=== PATIENT | female | born 1940 | race Caucasian/White ===

== ENCOUNTER 2016-07-26 11:42 | Outpatient (CLI) ==
[2014-08-12 16:37] VITALS: BMI 23.0
[2016-07-26 13:03] LABS: BASOPHILS # (AUTO) 0.1 K/uL (0-0.2); BASOPHILS % (AUTO) 0.7 % (0.0-3.0); EOSINOPHILS # (AUTO) 0.1 K/ul (0.0-0.7); EOSINOPHILS % (AUTO) 1.5 % (0.0-7.0); HEMATOCRIT 39.5 % (37.0-47.0); HEMOGLOBIN 12.9 g/dl (12.0-16.0); IMMATURE GRANULOCYTE % (AUTO) 0.3 % (0.0-5.0); LYMPHOCYTES % (AUTO) 43.9 (10.0-50.0); MEAN CORPUSCULAR HEMOGLOBIN 30.4 pg (27.0-31.0); MEAN CORPUSCULAR HGB CONC 32.7 (31.8-35.4); MEAN CORPUSCULAR VOLUME 92.9 fl (81.0-99.0); MONOCYTES # (AUTO) 0.4 K/uL (0.4-2.0); MONOCYTES % (AUTO) 6.1 (0-10); NEUTROPHILS # (AUTO) 3.3 K/ul (2.0-6.9); NEUTROPHILS % (AUTO) 47.5; PLATELET COUNT 133 10^3/uL (140-440); RED BLOOD COUNT 4.25 10^6/ul (4.20-5.40); WHITE BLOOD COUNT 6.86 K/ul (4.6-10.2)
[2016-07-26 13:04] LABS: BILIRUBIN,URINE Negative (NEGATIVE); KETONES,URINE Negative (NEGATIVE); LEUKOCYTE ESTERASE ,URINE Trace (NEGATIVE); NITRITE,URINE Negative (NEGATIVE); PH,URINE 5.5 (5-9); PROTEIN,URINE 3+ (NEGATIVE); URINE, BLOOD Negative (NEGATIVE)
[2016-07-26 13:17] LABS: ADD URINE MICROSCOPIC YES; ALBUMIN/GLOBULIN RATIO 1.48; ANION GAP 14.9; BILIRUBIN,TOTAL 0.43 mg/dL (0.00-1.20); BUN/CREATININE RATIO 12.65; CALCIUM 9.9 mg/dL (8.2-10.2); CHOL/HDL RATIO 2.8 (4.5-5.5); CREATININE 0.79 mg/dL (0.60-1.30); POTASSIUM 3.9 mmol/L (3.5-5.10); TOTAL PROTEIN 6.7 g/dL (5.8-8.1)
[2016-07-26 13:19] LABS: BACTERIA,URINE 1+ (NOT PRESENT)
== END 2016-07-26 11:43 | disposition home or self-care (01) ==
LOC: LAB 11:42
PROVIDERS: ATTEND General Practice
DX: E11.9 Type 2 diabetes mellitus without complications (principal); I10 Essential (primary) hypertension; Z79.899 Other long term (current) drug therapy
CPT/HCPCS: 36415; 80053; 80061; 81001; 83036; 85025; 87086

== ENCOUNTER 2017-01-04 16:06 | Outpatient (CLI) ==
[2014-08-12 16:37] VITALS: BMI 23.0
[2017-01-04 16:12] LABS: BASOPHILS # (AUTO) 0.1 K/uL (0-0.2); BASOPHILS % (AUTO) 0.6 % (0.0-3.0); EOSINOPHILS # (AUTO) 0.2 K/ul (0.0-0.7); EOSINOPHILS % (AUTO) 2.6 % (0.0-7.0); HEMATOCRIT 39.3 % (37.0-47.0); HEMOGLOBIN 13.2 g/dl (12.0-16.0); IMMATURE GRANULOCYTE % (AUTO) 0.1 % (0.0-5.0); LYMPHOCYTES # (AUTO) 3.5 K/uL (0.60-3.4); LYMPHOCYTES % (AUTO) 43.3 (10.0-50.0); MEAN CORPUSCULAR HGB CONC 33.6 (31.8-35.4); MEAN CORPUSCULAR VOLUME 92.3 fl (81.0-99.0); MONOCYTES # (AUTO) 0.4 K/uL (0.4-2.0); MONOCYTES % (AUTO) 5.1 (0-10); NEUTROPHILS # (AUTO) 3.9 K/ul (2.0-6.9); NEUTROPHILS % (AUTO) 48.3; PLATELET COUNT 141 10^3/uL (140-440); RED BLOOD COUNT 4.26 10^6/ul (4.20-5.40); WHITE BLOOD COUNT 7.99 K/ul (4.6-10.2)
[2017-01-04 16:17] LABS: BILIRUBIN,URINE Negative (NEGATIVE); KETONES,URINE Negative (NEGATIVE); LEUKOCYTE ESTERASE ,URINE Negative (NEGATIVE); NITRITE,URINE Negative (NEGATIVE); PH,URINE 5.5 (5-9); PROTEIN,URINE 2+ (NEGATIVE); URINE, BLOOD Negative (NEGATIVE)
[2017-01-04 16:19] LABS: ADD URINE MICROSCOPIC YES
[2017-01-04 16:27] LABS: ALBUMIN/GLOBULIN RATIO 1.29; ANION GAP 16.7; BILIRUBIN,TOTAL 0.48 mg/dL (0.00-1.20); BUN/CREATININE RATIO 17.14; CALCIUM 9.9 mg/dL (8.2-10.2); CHOL/HDL RATIO 2.6 (4.5-5.5); CREATININE 0.7 mg/dL (0.60-1.30); POTASSIUM 3.7 mmol/L (3.5-5.10); TOTAL PROTEIN 7.1 g/dL (5.8-8.1)
== END 2017-01-04 16:07 | disposition home or self-care (01) ==
LOC: LAB 16:06
PROVIDERS: ATTEND General Practice
DX: E11.9 Type 2 diabetes mellitus without complications (principal); Z79.899 Other long term (current) drug therapy
CPT/HCPCS: 36415; 80053; 80061; 81001; 83036; 85025

== ENCOUNTER 2017-02-22 16:26 | Outpatient (CLI) ==
[2014-08-12 16:37] VITALS: BMI 23.0
[2017-02-22 16:47] LABS: BASOPHILS # (AUTO) 0.1 K/uL (0-0.2); BASOPHILS % (AUTO) 0.9 % (0.0-3.0); EOSINOPHILS # (AUTO) 0.1 K/ul (0.0-0.7); EOSINOPHILS % (AUTO) 1.6 % (0.0-7.0); HEMATOCRIT 39.5 % (37.0-47.0); HEMOGLOBIN 13.2 g/dl (12.0-16.0); IMMATURE GRANULOCYTE % (AUTO) 0.1 % (0.0-5.0); LYMPHOCYTES # (AUTO) 3.8 K/uL (0.60-3.4); LYMPHOCYTES % (AUTO) 46.2 (10.0-50.0); MEAN CORPUSCULAR HEMOGLOBIN 30.9 pg (27.0-31.0); MEAN CORPUSCULAR HGB CONC 33.4 (31.8-35.4); MEAN CORPUSCULAR VOLUME 92.5 fl (81.0-99.0); MONOCYTES # (AUTO) 0.4 K/uL (0.4-2.0); MONOCYTES % (AUTO) 4.7 (0-10); NEUTROPHILS # (AUTO) 3.8 K/ul (2.0-6.9); NEUTROPHILS % (AUTO) 46.5; PLATELET COUNT 153 10^3/uL (140-440); RED BLOOD COUNT 4.27 10^6/ul (4.20-5.40); WHITE BLOOD COUNT 8.23 K/ul (4.6-10.2)
[2017-02-22 16:59] LABS: ALBUMIN 4.2 g/dL (3.4-5.0); ALBUMIN/GLOBULIN RATIO 1.35; ANION GAP 16.7; BILIRUBIN,TOTAL 0.38 mg/dL (0.00-1.20); BUN/CREATININE RATIO 19.48; CALCIUM 9.9 mg/dL (8.2-10.2); CREATININE 0.77 mg/dL (0.60-1.30); PHOSPHORUS 3.4 mg/dL (2.8-4.1); POTASSIUM 3.7 mmol/L (3.5-5.10); TOTAL PROTEIN 7.3 g/dL (5.8-8.1)
== END 2017-02-22 16:27 | disposition home or self-care (01) ==
LOC: LAB 16:26
PROVIDERS: ATTEND General Practice
DX: E11.9 Type 2 diabetes mellitus without complications (principal)
CPT/HCPCS: 36415; 80053; 84100; 85025

== ENCOUNTER 2017-05-02 15:30 | Outpatient (CLI) ==
[2014-08-12 16:37] VITALS: BMI 23.0
--- NOTE | 2017-05-02 15:46 | DI ---
EXAM: CHEST FRONTAL AND LATERAL VIEWS HISTORY: Shortness of breath. COMPARISON: 08/19/2014 FINDINGS: Upper limit normal heart size is stable. There is mild to moderate atherosclerotic diseas e of the aorta with prominent caliber of the vessel. This is stable. No acute infiltrates are seen. No vascular congestion. There is no consolidation, visible pleural fluid or pneumothorax. Bones rev eal no acute fracture. IMPRESSION: No acute cardiopulmonary process.
== END 2017-05-02 15:31 | disposition home or self-care (01) ==
LOC: RAD 15:30
PROVIDERS: ATTEND General Practice
DX: R06.02 Shortness of breath (principal); J44.9 Chronic obstructive pulmonary disease, unspecified; E11.9 Type 2 diabetes mellitus without complications; M25.519 Pain in unspecified shoulder; G89.29 Other chronic pain; R09.89 Other specified symptoms and signs involving the circulatory and respiratory systems
CPT/HCPCS: 36415; 80053; 83880; 85025

== ENCOUNTER 2017-06-29 15:28 | Outpatient (CLI) ==
[2014-08-12 16:37] VITALS: BMI 23.0
--- NOTE | 2017-06-29 16:03 | DI ---
EXAM: Six views of the lumbar spine. History: Lower back pain. Findings: Difficult evaluation due to the osteopenia and scoliosis. No obvious fractures are seen. Moderate to severe multilevel degenerative disc space narrowing with endplate sclerosis and osteophyt e formation. Atherosclerotic vascular calcifications. Surgical clips seen in the pelvis. Impression: 1. No acute osseous abnormality of the lumbar spine. 2. Moderate to severe degenerative changes. 3. Atherosclerotic vascular disease
== END 2017-06-29 15:29 | disposition home or self-care (01) ==
LOC: RAD 15:28
PROVIDERS: ATTEND General Practice
DX: M54.5 Low back pain (principal)

== ENCOUNTER 2017-09-23 18:41 | Emergency (ER) ==
[2017-09-23 18:51] VITALS: BP 134/83; TEMP 97.4; BMI 21.2
--- NOTE | 2017-09-23 20:12 | ED.PDOC ---
General ED Provider: Dr. WANDA VELÁZQUEZ-ER Chief Complaint: Shortness of Air Stated Complaint: i had back pain and i was more sob today Time Seen by Physician: 18:45 Mode of Arrival: Stretcher Information Source: Patient Exam Limitations: No limitations Primary Care Provider: [facility] Nursing and Triage Documentation Reviewed and Agree: Yes Does patient meet sepsis criteria?: No System Inflammatory Response Syndrome: Not Applicable Sepsis Protocol: For patient's 13 years and over: Temp is 96.8 and below OR 101 and greater Pulse >90 BPM Resp >20/minute Acutely Altered Mental Status Are patient's symptoms suggestive of a new infection, such as: -Pneumonia -Skin, Soft Tissue -Endocarditis -UTI -Bone, Joint Infection -Implantable Device -Acute Abdominal Infection -Wound Infection -Meningitis -Blood Stream Catheter Infection -Unknown Respiratory Complaint Exam - Shortness of Air Complaint/Exam Onset/Duration: 12 hrs Symptoms Are: Still present Timing: Constant Initial Severity: Mild Current Severity: Moderate Character: Reports: Dyspnea at rest Aggravating: Reports: None Alleviating: Reports: EMS treatment Associated Signs and Symptoms: Denies: Cough, Wheezing, Chest pain with cough, Chest pain, Fever, Chills, Diaphoresis, Nasal congestion, Dizziness, Calf pain, Calf swelling, Edema, Rapid breathing, Labored breathing, Decreased intake History of Healthcare-Acquired Pneumonia: No Home Oxygen Use: No Recent Stress Test: No Recent Echo/LV Function: No Respiratory Distress: None Stridor Present: No Tracheal Deviation: No Subcutaneous Emphysema: No Accessory Muscle Use: No Retractions: Not Present Diminished Breath Sounds: No Prolonged Expiratory Phase: No Unable to Speak Full Sentences: No Fatigue: No Leg Swelling: No Chris's Sign Present: No Grunting Respirations: No Kussmaul Respirations: No Differential Diagnoses: COPD Exacerbation, AR, Unstable Angina, Pulmonary Embolism Quality Indicator For Non-Traumatic Chest Pain/Syncope: EKG Performed Review of Systems - Review Of Systems Constitutional: Reports: No symptoms Eyes: Reports: No symptoms Ears, Nose, Mouth, Throat: Reports: No symptoms Respiratory: Reports: Short of air Cardiac: Reports: Chest pain GI: Reports: No symptoms : Reports: No symptoms Musculoskeletal: Reports: Back pain Skin: Reports: No symptoms Neurological: Reports: No symptoms Endocrine: Reports: No symptoms Hematologic/Lymphatic: Reports: No symptoms All Other Systems: Reviewed and Negative Past Medical History - Past Medical History Previously Healthy: No Endocrine: Reports: Other Cardiovascular: Reports: Other Respiratory: Reports: COPD Hematological: Reports: Other Gastrointestinal: Reports: Other Genitourinary: Reports: Unknown Neuro/Psych: Reports: Unknown Musculoskeletal: Reports: Unknown Cancer: Reports: Unknown Last Menstrual Period: hysterectomy - Surgical History General Surgical History: Reports: Unknown - Family History Family History: Reports: Unknown - Social History Smoking Status: Current every day smoker Hx Substance Use: No Alcohol Screening: None Physical Exam - Physical Exam Appearance: Well-appearing, No pain distress, Well-nourished Eyes: RAFA, EOMI, Conjunctiva clear ENT: Ears normal, Nose normal, Oropharynx normal Neck: Supple Respiratory: Airway patent Cardiovascular: RRR GI/: Soft Musculoskeletal: Normal strength, ROM intact, No edema, No calf tenderness Skin: Warm, Dry, Normal color Neurological: Sensation intact, Motor intact, Reflexes intact, Cranial nerves intact, Alert, Oriented Psychiatric: Affect appropriate, Mood appropriate Interpretation - Radiology Interpretation Radiology Interpretation By: Radiologist Radiology Results: Positive Exam Interpreted: CT Scan Physician Notification - Case Discussed Physician Notified: dr lakhani--accepted in transfer-=-SLU Time of Notification: 20:42 Critical Care Note - Critical Care Note Total Time (mins): 30 Course - Course Hematology/Chemistry: 09/23/17 18:53 09/23/17 18:53 Orders, Labs, Meds: Lab Review 09/23/17 09/23/17 09/23/17 18:53 18:53 18:53 WBC 10.96 H RBC 3.74 L Hgb 11.3 L Hct 34.1 L MCV 91.2 MCH 30.2 MCHC 33.1 RDW Coeff of [place] 13.8 Plt Count 107 L Immature Gran % (Auto) 0.5 Neut % (Auto) 57.2 Lymph % (Auto) 34.9 Perry % (Auto) 7.0 Eos % (Auto) 0.1 Baso % (Auto) 0.3 Immature Gran # (Auto) 0.1 Neut # (Auto) 6.3 Lymph # (Auto) 3.8 H Perry # (Auto) 0.8 Eos # (Auto) 0.0 Baso # (Auto) 0.0 D-Dimer (Manual) > 71510.00 H Puncture Site O2 Saturation ABG pH ABG pCO2 ABG pO2 ABG HCO3 ABG Total CO2 ABG Base Excess Porfirio Test FiO2 % Sodium 139 Potassium 4.1 Chloride 104 Carbon Dioxide 22 L Anion Gap 17.1 BUN 26 H Creatinine 1.12 Estimated GFR (MDRD) 47.00 BUN/Creatinine Ratio 23.21 Glucose 194 H Calcium 9.3 Total Bilirubin 0.9 AST 18 ALT 11 L Alkaline Phosphatase 57 Total Creatine Kinase 50 Troponin I 0.0260 Total Protein 6.4 Albumin 3.9 Globulin 2.5 Albumin/Globulin Ratio 1.56 09/23/17 19:30 WBC RBC Hgb Hct MCV MCH MCHC RDW Coeff of [place] Plt Count Immature Gran % (Auto) Neut % (Auto) Lymph % (Auto) Perry % (Auto) Eos % (Auto) Baso % (Auto) Immature Gran # (Auto) Neut # (Auto) Lymph # (Auto) Perry # (Auto) Eos # (Auto) Baso # (Auto) D-Dimer (Manual) Puncture Site Rr O2 Saturation 87.0 L ABG pH 7.392 ABG pCO2 37.1 ABG pO2 53.0 L* ABG HCO3 22.6 ABG Total CO2 24 ABG Base Excess -2 Porfirio Test + FiO2 % 21.0 Sodium Potassium Chloride Carbon Dioxide Anion Gap BUN Creatinine Estimated GFR (MDRD) BUN/Creatinine Ratio Glucose Calcium Total Bilirubin AST ALT Alkaline Phosphatase Total Creatine Kinase Troponin I Total Protein Albumin Globulin Albumin/Globulin Ratio Orders Category Date Time Status ABG DRAW REQUEST Stat CARDIO 09/23/17 19:30 Completed EKG-(ED ONLY) Stat CARDIO 09/23/17 18:42 Completed NPO REMINDER: IMAGING ONCE CARE 09/23/17 18:50 Completed TRANSFER TO OUTSIDE FACILITY .TO [facility] CARE 09/23/17 20:44 Active HOSPITAL ([place]) WRITE TRANSFER/SBAR NOTE ONCE CARE 09/23/17 20:44 Completed DISCHARGE ASSESSMENT ONCE DISCHARGE 09/23/17 20:44 Completed WRITE DISCHARGE NOTE ONCE DISCHARGE 09/23/17 20:44 Completed ED ELECTRICAL SYSTEMS ENGINEER APPLIED .ONCE EMERGENCY 09/23/17 18:42 Active IV [ED IV/MEDIPORT/POWERPORT] .ONCE EMERGENCY 09/23/17 18:43 Active ABG Stat LAB 09/23/17 19:30 Completed CBC W/ AUTO DIFF Stat LAB 09/23/17 18:53 Completed COMPREHENSIVE METABOLIC PANEL Stat LAB 09/23/17 18:53 Completed CREATINE KINASE Stat LAB 09/23/17 18:53 Completed D-DIMER Stat LAB 09/23/17 18:53 Completed TROPONIN I Stat LAB 09/23/17 18:53 Completed 0.9 % Sodium Chloride [Saline Flush] MEDS 09/23/17 18:43 Discontinued 1 syr IVF PRN PRN Morphine Sulfate [Morphine 2 mg/ml Syringe] MEDS 09/23/17 21:36 Discontinued 2 mg .ROUTE .STK-MED ONE Morphine Sulfate [Morphine 2 mg/ml Syringe] MEDS 09/23/17 21:31 Discontinued 2 [address] IVP Q4H PRN CT CHEST PE PROTOCOL Stat RADS 09/23/17 18:49 Completed Medications Discontinued Medications Generic Name Dose Route Start Last Admin Trade Name Freq PRN Reason Stop Dose Admin Morphine Sulfate 2 mg 09/23/17 21:31 09/23/17 21:38 Morphine 2 Mg/Ml Syringe IVP 2 mg Q4H PRN Administration MODERATE PAIN Sodium Chloride 1 syr 09/23/17 18:43 Saline Flush IVF PRN PRN To flush IV Vital Signs: Temp Pulse Resp BP Pulse Ox 09/23/17 18:41 97.4 F L 82 28 H 134/83 93 L Departure - Departure Time of Disposition: 20:42 Disposition: TSF SHORT-TRM HOSP Discharge Problem: Descending thoracic aortic aneurysm Instructions: Back Pain (ED) Condition: Stable Pt referred to PMD for follow-up: Yes IPMP verified?: No Allergies/Adverse Reactions: Allergies Penicillins Allergy (Mild, Verified 09/23/17 18:54) Rash Home Medications: Ambulatory Orders Multivit-Min/FA/Lycopene/Lut [Centrum Silver Tablet] 1 each PO DAILY 01/02/14 Sitagliptin Phos/Metformin HCl [Janumet 50-1,000 mg Tablet] 1 each PO BID Olmesartan Medoxomil [Benicar] 20 mg PO DAILY 08/12/14 Acetaminophen [Tylenol Extra Strength] 500 mg PO PRN PRN tab-cap 07/06/15 [place] Xl 1 tab-cap PO DAILY #30 tab-cap 01/01/17 Blood Sugar Diagnostic [Accu-Chek Mayra Plus] 1 each MC ONCE #30 strip 08/14/17 Transfer Form Completed: Yes Disposition Discussed With: Patient, Family
--- NOTE | 2017-09-23 20:26 | CT ---
Exam: CTA chest. Date: 09/23/2017. Comparison: None. HISTORY: Dyspnea shortness of breath. TECHNIQUE: Helical scan of the thorax was performed following intravenous contrast. MIP and 3-D rec onstruction was performed. FINDINGS: The thoracic inlet and axillary regions are normal. Granulomatous calcifications present i n the mediastinum. No suspicious adenopathy is seen. At the level of the right main pulmonary arter y, the ascending aorta measures 4.4 x 4.4 cm. The descending thoracic aorta measures 5.2 x 5.2 cm. The aorta further dilates at the hiatus where it measures 6.3 x 6.4 cm. There is calcification withi n the lumen suggesting a chronic dissection is present but the vessel is not opacified. The cardiac chamber sizes are within normal limits. Granulomatous calcifications are present in the upper spleen . The upper spleen and upper liver have a uniform attenuation. Within the upper abdomen, the aorta dilates to 6.3 x 5.8 cm. Evaluation of lung window settings demonstrates centrolobular emphysematous changes. There is linear atelectasis or scarring in the right lung base with dependent consolidation also present. No pleura l fluid or pleural separation is present. There is a levoscoliotic curve in the thoracic spine with multilevel degenerative changes. No lytic or blastic lesions or acute displaced rib fractures are observed. There is good enhancement of the pulmonary arteries and no intraluminal filling defects are seen out to the segmental pulmonary arterial divisions. Impression: No evidence of emboli out to the segmental pulmonary arterial divisions. There is aneurysmal dilatation of the aorta, with the ascending aorta measuring approximately 4.4 x 4 .4 cm at the level of the right main pulmonary artery. At this level, the descending thoracic aorta measures 5.2 x 5.2 cm and remains dilated throughout the thorax, measuring 6.3 x 6.4 cm at the hiatus . It is also dilated in the upper abdomen, measuring at least 5.8 x 6.3 cm. Calcification is seen w ithin the central lumen suggesting there is at least a chronic dissection. However there is no contr ast identified in the ascending aorta, as the study had been optimized for evaluation of the pulmonar y arteries. It is unknown whether there are signs or symptoms suggestive of an acute dissection. A C TA of the chest, abdomen pelvis would be recommended to determine the full extent of the aneurysm as no prior studies of the abdomen pelvis are available. The patient's clinical condition should determi ne whether this is done emergently or electively. Small focus of consolidation in the posterior right lung base superimposed upon emphysema. Old granulomatous disease. Critical results were discussed with Dr. Mckeon at 8:22 p.m. on 09/23/2017.
[2017-09-23] MEDS ORDERED: MORPHINE 2 MG/ML SYRINGE IVP PRN (21:31)
[2017-09-23] MEDS ORDERED: MORPHINE 2 MG/ML SYRINGE ONE (21:36)
== END 2017-09-23 22:25 | disposition short-term general hospital (02) ==
LOC: ED 18:41
DX: I71.2 Thoracic aortic aneurysm, without rupture (principal); R06.02 Shortness of breath; F17.210 Nicotine dependence, cigarettes, uncomplicated; Z79.899 Other long term (current) drug therapy
CPT/HCPCS: 36415; 80053; 82550; 82803; 84484; 85025; 85379; 93005; 93010; 96375; 99285